=== PATIENT | male | born 1975 | race Caucasian/White ===

== ENCOUNTER 2019-08-08 08:52 | Emergency (ER) | payer OTHER ==
[~2019-08-08] VITALS: Ht 167.6 cm; Wt 53.1 kg
== END 2019-08-08 15:46 | disposition home or self-care (01) ==
LOC: ER 08:52
DX: N20.1 Calculus of ureter (principal); K80.20 Calculus of gallbladder without cholecystitis without obstruction; R10.12 Left upper quadrant pain; R10.31 Right lower quadrant pain

== ENCOUNTER → 2019-10-14 11:45 | Outpatient (CLI) | payer OTHER | END | disposition home or self-care (01) | LOC: LAB 11:45 | DX: K35.32 Acute appendicitis with perforation, localized peritonitis, and gangrene, without abscess (principal) ==

== ENCOUNTER 2019-10-16 10:22 | Outpatient (CLI) | payer OTHER | END 2019-10-16 10:38 | disposition home or self-care (01) | LOC: TOM 10:22 | DX: K65.1 Peritoneal abscess (principal) ==

== ENCOUNTER 2019-10-29 11:35 | Outpatient (CLI) | payer OTHER | END 2019-10-29 11:47 | disposition home or self-care (01) | LOC: EKG 11:35 | DX: K65.1 Peritoneal abscess (principal); K65.2 Spontaneous bacterial peritonitis; I10 Essential (primary) hypertension ==

== ENCOUNTER 2019-11-09 10:48 | Day surgery (SDC) | payer OTHER ==
[2019-11-10] MEDS ORDERED: LOSARTAN POTASS25 MG PO (09:55)
== END 2019-11-09 18:16 | disposition home or self-care (01) ==
LOC: AMB-ENDOS 10:48
DX: D12.5 Benign neoplasm of sigmoid colon (principal)

== ENCOUNTER 2019-11-10 07:00 | Day surgery (SDC) | payer OTHER ==
[~2019-11-10] VITALS: Ht 162.6 cm; Wt 59.9 kg
[2019-11-10] MEDS ORDERED: LOSARTAN POTASS25 MG PO (09:55)
[2019-11-11] MEDS ORDERED: PERCOCET 5-3251 EACH PO ×2 (07:53)
[2019-11-11] MEDS ORDERED: OMEPRAZOLE20 MG PO ×2 (07:53)
[2019-11-11] MEDS ORDERED: INTESTINEX680 M1 PO ×2 (07:56)
== END 2019-11-11 08:00 | disposition home or self-care (01) ==
LOC: CIR.AMB 07:00 → SURH 08:58 → O/R 08:58 → SURG 08:58 → SURH 10:45 → O/R 15:03 → SURG 15:03 → SURH 15:15 → EDSTATUS 15:15 → CIR.AMB 11-11 08:00 → SURG 11-11 14:52 → O/R 11-11 14:52
DX: K35.32 Acute appendicitis with perforation, localized peritonitis, and gangrene, without abscess (principal)

== ENCOUNTER 2022-10-05 09:01 | Outpatient (CLI) | payer OTHER ==
[~2022-10-05 09:01] MED LIST: INTESTINEX680 M1 PO; LOSARTAN POTASS25 MG PO; OMEPRAZOLE20 MG PO; PERCOCET 5-3251 EACH PO
== END 2022-10-05 09:12 | disposition home or self-care (01) ==
LOC: SONOGRAMA 09:01
PROVIDERS: ATTEND Urology
DX: R31.1 Benign essential microscopic hematuria (principal); R33.9 Retention of urine, unspecified; N40.1 Benign prostatic hyperplasia with lower urinary tract symptoms

== ENCOUNTER 2023-11-29 09:31 | Emergency (ER) | payer OTHER ==
[~2023-11-29] VITALS: Ht 162.6 cm; Wt 56.7 kg
[2023-11-29] MEDS ORDERED: 0.9 % SODIUM CHLORIDE 1,000 ML IV STA (10:08)
[2023-11-29 10:35] LABS: HEMATOCRIT 46.1 % (39.0-48.0); HEMOGLOBIN 15.8 g/dL (13-16.00); MEAN CELL VOLUME 89.6 fL (80.0-100.00); MEAN CORPUSCULAR HEMOGLOBIN 30.8 pg (27.00-32.0); MEAN CORPUSCULAR HGB CONC 34.4 g/dl (32.0-36.0); PLATELET COUNT 211 K/uL (150-450); RED BLOOD COUNT 5.15 M/uL (4.00-6.00); RED CELL DISTRIBUTION WIDTH 13.1 % (11.5-14.5)
[2023-11-29 10:53] LABS: PH,URINE 5.5 (5.0-8.0); URINE APPEARANCE Clear; URINE BILIRRUBIN Negative (NEGATIVE); URINE BLOOD Negative; URINE COLOR Yellow; URINE GLUCOSE Negative (NEGATIVE); URINE LEUKOCYTE Negative; URINE NITRATE Negative; URINE PROTEIN Negative (NEGATIVE); URINE UROBILINOGEN 0.2 E.U./dl
[2023-11-29 11:07] LABS: CALCIUM 8.8 mg/dL (8.5-10.1); CREATININE SERUM 1.09 mg/dL (0.70-1.30); GFR 72.2; POTASSIUM 4.06 mEq/L (3.5-5.1)
[2023-11-29 11:29] LABS: URINE BACTERIA 1.2 uL (0.0-1933); URINE EPITHELIAL CELLS 0.2 uL (0.0-38.8); URINE WBC 0.2 uL (0.0-23.2)
== END 2023-11-29 16:04 | disposition home or self-care (01) ==
LOC: ER 09:32
PROVIDERS: General Practice
DX: K52.89 Other specified noninfective gastroenteritis and colitis (principal); Z88.8 Allergy status to other drugs, medicaments and biological substances; Z20.822 Contact with and (suspected) exposure to COVID-19